=== PATIENT | female | born 2000 ===

== ENCOUNTER 2021-05-31 21:33 | Emergency (ER) | payer MEDICAID ==
[2021-05-31] MEDS ORDERED: Octyl 2-Cyanoacrylate 1 Tube TOP ONE (22:17)
[2021-05-31] MEDS: Octyl 2-Cyanoacrylate 1 APPLIC TUBE ONE ×2 (22:20→22:21)
[2021-05-31] MEDS ORDERED: Octyl 2-Cyanoacrylate 1 APPLIC TUBE TOP ONE (22:25)
--- NOTE | 2021-05-31 22:59 | EDM.PDOC ---
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 Patient denies any loss of consciousness. Patient said is not up-to-date. Patient has any double vision or blurred vision. Review of systems: As per history of present illness and below otherwise all systems reviewed and negative. Past medical history: As per history of present illness and as reviewed below otherwise noncontributory. Surgical history: As per history of present illness and as reviewed below otherwise noncontributory. Social history: No reported history of drug abuse. Family history: As per history of present illness and as reviewed below otherwise noncontributory. Physical exam: This patient was seen and evaluated during the 2019 SARS-CoV-2 novel coronavirus pandemic period. Community viral transmission is ongoing at time of this encounter and the emergency department is operating under pandemic response procedures. Constitutional: Patient is oriented to person, place, and time. Appears well- developed and well-nourished. No distress. HEENT: Moist mucous membranes Head: Normocephalic and atraumatic Eyes: Right eye exhibits no discharge. Left eye exhibits no discharge. No scleral icterus Neck: Normal range of motion. No tracheal deviation present. Cardiovascular: Normal rate and regular rhythm. Pulmonary: Effort normal, no respiratory distress. Abdominal: No distention Musculoskeletal: Normal range of motion Neurologic: Alert and oriented to person, place and time. Skin: [place], warm and dry. Psychiatric: Normal mood and affect. Behavior is normal. Judgment and thought content normal. Nursing note and vital signs have been reviewed LIDS & LASHES: Normal. PUPILS: Pupils equal and reactive. EOM's: Intact. LID EVERSION: No foreign body. CONJUNCTIVAE: No conjunctival injection CORNEA: No foreign body noted, no infiltrate. Patient with a 2 cm superficial laceration under her right eyelid Diagnostics: [] Therapeutics: Dermabond applied to right eyelid with good opposition of wound edges Assessment and plan: 20-year-old with a laceration to her right eyelid. This occurred at work. Dermabond has been applied. Patient is neurovascular intact. No point bony tenderness or need for x-ray. Patient to follow-up with [facility]ram[facility] perez. Reassessment at the time of disposition demonstrates that the patient is in no acute distress. The patient has remained stable throughout the entire ED visit and is without objective evidence for acute process requiring urgent intervention or hospitalization. The patient is stable for discharge, counseling is provided as documented above, discussed symptomatic treatment and specific conditions for return. I have spoken with the patient/caregiver and discussed todays findings, in addition to providing specific details for the plan of care. Questions are answered and there is agreement with the plan. Definitive disposition and diagnosis as appropriate pending reevaluation and review of above. Right Eye Pain Score (Numeric/FACES): 5 - Related Data Allergies Allergy/AdvReac Type Severity Reaction Status Date / Time No Known Allergies Allergy Verified 05/31/21 21:56 Home Meds: Home Meds . [No Known Home Meds] 05/31/21 [History] Past Medical History - Past Health History Medical/Surgical History: Denies Medical/Surgical History Social & Family History - Tobacco Use Tobacco Use Status *Q: Never Tobacco User - Recreational Drug Use Recreational Drug Use: No ED ROS GENERAL - Review of Systems Review Of Systems: See Below ED EXAM, SKIN/RASH Exam: See Below ED SKIN PROCEDURES - Laceration/Wound Repair Right Face Appearance: Superficial, Clean Distal NVT: Neuro & Vascular Intact Skin Prep: Saline Closed with: Dermabond Lac/Wound length In cm: 2 Course - Vital Signs Last Recorded V/S: Last Vital Signs Temp 97.0 F 05/31/21 21:56 Pulse 76 05/31/21 22:33 Resp 18 05/31/21 22:33 BP 109/53 L 05/31/21 22:33 Pulse Ox 100 05/31/21 22:33 - Orders/Labs/Meds Meds: Medications Discontinued Medications Generic Name Dose Route Start Last Admin Trade Name Chin PRN Reason Stop Dose Admin Octyl Cyanoacrylate 1 applic 05/31/21 22:17 05/31/21 22:28 Octyl 2-Cyanoacrylate 1 Tube TOP 05/31/21 22:18 Not Given ONETIME ONE Octyl Cyanoacrylate Confirm 05/31/21 22:16 05/31/21 22:21 Octyl 2-Cyanoacrylate 1 Applic Tube Administered 05/31/21 22:17 Not Given Dose 1 applic .ROUTE .STK-MED ONE Octyl Cyanoacrylate 1 applic 05/31/21 22:25 05/31/21 22:27 Octyl 2-Cyanoacrylate 1 Applic Tube TOP 05/31/21 22:26 1 applic ONETIME ONE Administration Departure - Departure Time of Disposition: 22:58 Disposition: Home, Self-Care 01 Condition: Good Clinical Impression: Head injury, Right eyelid laceration - Discharge Information Instructions: Head Injury, Adult, Facial Laceration, Sutures, [place], or Adhesive Wound Closure, [id number] Referrals: PCP,None [Primary Care Provider] - Additional Instructions: Dermabond has been applied to your injury. Please follow-up with Work[employer]'s [employer]. for reevaluation. [facility] [place] [phone] The following information is given to patients seen in the emergency department who are being discharged to home. This information is to outline your options for follow-up care. We provide all patients seen in our emergency department with a follow-up referral. The need for follow-up, as well as the timing and circumstances, are variable depending upon the specifics of your emergency department visit. If you don't have a primary care physician on staff, we will provide you with a referral. We always advise you to contact your personal physician following an emergency department visit to inform them of the circumstance of the visit and for follow-up with them and/or the need for any referrals to a consulting specialist. The emergency department will also refer you to a specialist when appropriate. This referral assures that you have the opportunity for follow-up care with a specialist. All of these measure are taken in an effort to provide you with optimal care, which includes your follow-up. Under all circumstances we always encourage you to contact your private physician who remains a resource for coordinating your care. When calling for follow-up care, please make the office aware that this follow-up is from your recent emergency room visit. If for any reason you are refused follow-up, please contact the [facility] Emergency Department at and asked to speak to the emergency department charge nurse. [facility] - [facility] [address] [place] [address] [facility] [address] [place] [id number] Sepsis Event Note (ED) - Evaluation Sepsis Screening Result: No Definite Risk - Focused Exam Vital Signs: Vital Signs Temp Pulse Resp BP Pulse Ox 05/31/21 22:33 76 18 109/53 L 100 05/31/21 21:56 97.0 F 74 18 98/57 L 100
== END 2021-05-31 23:03 | disposition home or self-care (01) ==
LOC: MW.ED 21:33
DX: S01.111A Laceration without foreign body of right eyelid and periocular area, initial encounter (principal); W20.8XXA Other cause of strike by thrown, projected or falling object, initial encounter; Y99.0 Civilian activity done for income or pay
CPT/HCPCS: 12011; 99282; A9270